=== PATIENT | male | born 1990 | race Caucasian/White ===

== ENCOUNTER 2024-10-19 18:26 | Emergency (ER) | payer SELFPAY ==
[~2024-10-19] VITALS: Ht 180.3 cm; Wt 84.0 kg
[2024-10-19 18:29] VITALS: O2SAT 99
[2024-10-19 18:57] VITALS: BP 108/72; PULSE 75; RESP 18; TEMP 36.7; O2SAT 99
[2024-10-19 19:22] LABS: BASOPHILS % 0.6 % (0.0-2.0); EOSINOPHILS % 2.7 % (0.0-5.0); HEMATOCRIT. 41.7 % (42.0-52.0); HEMOGLOBIN. 13.9 g/dL (14.0-18.0); LYMPHOCYTES % 42.5 % (20.0-50.0); MEAN PLATELET VOLUME 8.4 fl (7.4-10.4); MONOCYTES % 7.5 % (2.0-8.0); NEUTROPHILS % 46.7 % (40.0-76.0); PLATELET 197 x1000/uL (130-400); RED BLOOD CELL COUNT 4.55 mill/uL (4.7-6.1); RED CELL DISTRIBUTION WIDTH 14.1 % (11.6-14.6)
[2024-10-19 19:37] LABS: CREATININE 0.9 mg/dL (0.6-1.3); UREA NITROGEN BLOOD 26 mg/dL (9-23)
[2024-10-19 19:38] LABS: TROPONIN I HIGH SENSITIVITY < 4 ng/L (3.0-53)
[2024-10-19 19:58] LABS: ASPARTATE AMINOTRANSFERASE 24 IU/L (<34); BILIRUBIN DIRECT 0.1 mg/dL (<=3.0); BILIRUBIN TOTAL 0.5 mg/dL (0.1-1.0); PROTEIN TOTAL 7.0 g/dL (6.0-8.3)
== END 2024-10-20 00:28 | disposition home or self-care (01) ==
LOC: ER 18:26
DX: R00.2 Palpitations (principal); R07.9 Chest pain, unspecified; G43.909 Migraine, unspecified, not intractable, without status migrainosus; Z79.899 Other long term (current) drug therapy
CPT/HCPCS: 36415; 71045; 80048; 80076; 83880; 84443; 84484; 85025; 85379; 93005; 99285